=== PATIENT | female | born 1995 | race Caucasian/White ===

== ENCOUNTER 2016-10-19 21:19 | Emergency (ER) | payer OTHER ==
[2016-10-19 21:43] VITALS: BP 117/68
--- NOTE | 2016-10-19 22:52 | UC ---
General HPI - HPI Summary HPI Summary: complaint of left nipple pain following getting pierced today feels swollen and purple and entire breast hurts a clamp was used on the left breast before peircing her nipple and wasn't wearing a mask denies fever taking tylenol and advil with some relief - History of Current Complaint Hx Obtained From: Patient <Freda Colon - Last Filed: 10/19/16 23:09> <Fany Cottrell - Last Filed: 10/19/16 23:35> - History of Current Complaint Chief Complaint: UCSkin Stated Complaint: SKIN C/O Time Seen by Provider: 10/19/16 22:45 - Allergy/Home Medications Allergies/Adverse Reactions: Allergies Allergy/AdvReac Type Severity Reaction Status Date / Time Eggs or Egg-derived Products Allergy Anaphylatic Verified 10/19/16 21:45 Shock Milk-related Compounds Allergy Anaphylatic Verified 10/19/16 21:45 Shock Peanut-containing Drug Allergy Altered Verified 10/19/16 21:45 Products Mental Status Sesame Oil Allergy Anaphylatic Verified 10/19/16 21:45 Shock Soy Allergy Allergy Anaphylatic Verified 10/19/16 21:45 Shock Tree Nuts Allergy Anaphylatic Verified 10/19/16 21:45 Shock Home Medications: Home Medications Beclomethasone 40 MCG MDI(NF) [Qvar 40 MCG MDI(NF)] 10/19/16 [History] PMH/Surg Hx/FS Hx/Imm Hx Previously Healthy: Yes Respiratory History Of: Reports: Asthma - Surgical History Surgical History: Yes Surgery Procedure, Year, and Place: periodontal - Family History Known Family History: Positive: Hypertension - father Negative: Cardiac Disease, Diabetes - Social History Occupation: Student Alcohol Use: Occasionally Substance Use Type: None Smoking Status (MU): Never Smoked Tobacco <Freda Colon - Last Filed: 10/19/16 23:09> Review of Systems Constitutional: Negative Skin: Other - piercing Eyes: Negative ENT: Negative Respiratory: Negative Cardiovascular: Negative Gastrointestinal: Negative Genitourinary: Negative Motor: Negative Neurovascular: Negative Musculoskeletal: Negative Neurological: Negative Psychological: Negative All Other Systems Reviewed And Are Negative: Yes <Freda Colon - Last Filed: 10/19/16 23:09> Physical Exam Triage Information Reviewed: Yes Appearance: No Pain Distress, Well-Nourished Vital Signs: Initial Vital Signs Temp 99.4 F 04/01/17 21:40 Pulse 55 10/19/16 21:40 Resp 18 10/19/16 21:40 BP 117/68 10/19/16 21:40 Pulse Ox 97 10/19/16 21:40 Vital Signs Reviewed: Yes Eyes: Positive: Conjunctiva Clear ENT: Positive: Pharynx normal, TMs normal Respiratory: Positive: Lungs clear, Normal breath sounds, No respiratory distress Cardiovascular: Positive: RRR, No Murmur, Pulses Normal Neurological: Positive: Alert Psychological Exam: Normal Skin: Positive: Other - left breast - ecchymosis and tenderness around nipple - area [id number] cm warm to touch no axilla tenderness <Freda Colon - Last Filed: 10/19/16 23:09> Vital Signs: Initial Vital Signs Temp 99.4 F 10/19/16 21:40 Pulse 55 10/19/16 21:40 Resp 18 10/19/16 21:40 BP 117/68 10/19/16 21:40 Pulse Ox 97 10/19/16 21:40 <Fany Cottrell - Last Filed: 10/19/16 23:35> Course/Dx - Differential Dx - Multi-Symptom Differential Diagnoses: Other - cellulitis Provider Diagnoses: left breast hematoma, left breast cellulitis <Freda Colon - Last Filed: 10/19/16 23:09> Discharge <Freda Colon - Last Filed: 10/19/16 23:09> <Fany Cottrell - Last Filed: 10/19/16 23:35> - Discharge Plan Condition: Stable Disposition: HOME Prescriptions: Sulfamethox/Trimethoprim DS* [Bactrim DS 800/160 TAB*] 1 tab PO BID #14 tab Patient Education Materials: Hematoma (ED), Cellulitis (ED) [facility] - Additional Instructions: Please take antibiotic as directed Increase fluids and rest Take acetaminophen or ibuprofen for fever or pain Please review your discharge instructions. If your symptoms do not improve please call your primary care provider or return to urgent care.
[2016-10-19] MEDS ORDERED: Sulfamethox/Trimethoprim DS 800/160* TAB PO ONE ×2 (23:02→23:08)
== END 2016-10-19 23:22 | disposition home or self-care (01) ==
LOC: UCEAST 21:19
DX: S20.02XA Contusion of left breast, initial encounter (principal); X58.XXXA Exposure to other specified factors, initial encounter; Y93.9 Activity, unspecified; Y92.9 Unspecified place or not applicable; N61.0 Mastitis without abscess; J45.909 Unspecified asthma, uncomplicated
CPT/HCPCS: 99212; A9270-GY; G0463

== ENCOUNTER 2017-11-01 06:41 | Emergency (ER) | payer OTHER ==
[2017-11-01] MEDS ORDERED: NS 0.9% 1000 ML* 2,000 ML IV ONE (07:46)
[2017-11-01] MEDS ORDERED: Ondansetron INJ* 2 MG/ML VIAL IV ONE (07:46)
[2017-11-01] MEDS ORDERED: Ketorolac INJ* 30 MG/ML 1 ML VIAL IV ONE (07:46)
[2017-11-01] MEDS ORDERED: Ketorolac INJ* 30 MG/ML 1 ML VIAL ONE (07:48)
[2017-11-01] MEDS ORDERED: Ondansetron INJ* 2 MG/ML VIAL ONE (07:48)
[2017-11-01] MEDS ORDERED: Pantoprazole IV* 40 MG IV ONE (07:48)
[2017-11-01 08:08] LABS: ABS Basophils 0.1 10^3/ul (0-0.2); ABS Eosinophils 0.2 10^3/ul (0-0.6); ABS Lymphocytes 1.4 10^3/ul (1.0-4.8); ABS Monocytes 0.5 10^3/ul (0-0.8); ABS Neutrophils 7.2 10^3/ul (1.5-7.7); ABS Nucleated RBC 0 10^3/ul; Eosinophil % 1.8 % (0-6); Hematocrit 44 % (35-47); Hemoglobin 15.6 g/dl (12.0-16.0); Lymphocyte % 15.2 % (25-47); Mean Corpuscular HGB Conc 35 g/dl (31-36); Mean Corpuscular Hemoglobin 31 pg (27-31); Mean Corpuscular Volume 89 fL (80-97); Mean Platelet Volume 9.7 um3 (7.4-10.4); Nucleated Red Blood Cells % 0; Platelet Count 219 10^3/ul (150-450); Red Blood Count 4.98 10^6/ul (4.0-5.4); Red Cell Distribution Width 13 % (10.5-15); White Blood Count 9.3 10^3/ul (3.5-10.8)
[2017-11-01 08:23] LABS: EGFR Non-African American 73.6 (>60)
[2017-11-01 08:28] LABS: Urine Appearance Clear; Urine Blood Negative (Negative); Urine Color Straw; Urine Ketones Negative (Negative); Urine Protein Negative (Negative); Urine Specific Gravity 1.006 (1.010-1.030); Urine Urobilinogen Negative (Negative)
[2017-11-01 08:33] LABS: INR 0.91 (0.77-1.02)
[2017-11-01] MEDS ORDERED: Iohexol 300* (CONTRAST) 10 ML SDV IV ONE (08:58)
--- NOTE | 2017-11-01 09:54 | RAD ---
CLINICAL HISTORY: 3 days of abdominal pain, constipation, nausea and vomiting COMPARISON: None TECHNIQUE: Contrast enhanced CT examination of the abdomen and pelvis from the lung bases through the initial tuberosities. The patient received 70 mL Omnipaque 300 intravenously prior to imaging.The patient received oral contrast as well prior to imaging. FINDINGS: VISUALIZED LUNG BASES: The visualized lung bases are grossly clear. There is no pleural effusion. ABDOMEN AND PELVIS: The liver, spleen, pancreas and adrenal glands are grossly normal in appearance. The gallbladder is normal. The kidneys are normal in appearance without focal mass, calcification or signs of hydronephrosis. The oral contrast has progressed as far as the transverse colon. The small and large bowel are not distended. The appendix is best visualized in the sagittal plane (image 52 and 54) measuring 5 mm in diameter with contrast in the lumen and at least one foci of gas in the distal portion. There are air-fluid levels throughout much of the small bowel and colon. There is no definite wall thickening. There is no gross retroperitoneal or mesenteric lymphadenopathy. The pelvic viscera is normal in appearance. The abdominal aorta and iliac arteries are normal in course and diameter. There are no sinister bone lesions. IMPRESSION: 1. Air-fluid levels throughout much of the not pathologically dilated small and large bowel could be seen in the setting of diarrheal illness. 2. Normal appendix.
[2017-11-01] MEDS ORDERED: Al Hydrox/Mg Hydrox/Simet LIQ* 30 ML UDC PO ONE (11:09)
[2017-11-01] MEDS ORDERED: Lidocaine 2% VISCOUS* 15 ML UDC PO ONE (11:09)
[2017-11-01 12:49] VITALS: BP 126/76
--- NOTE | 2017-11-01 18:03 | ED ---
Zehra Patel Jason, scribed for Kenny Raygoza MD on 11/01/17 at 0751 . Abdominal Pain/Female - HPI Summary HPI Summary: This patient is a 22 year old F [facility] accompanied by female fitness professional with a chief complaint of intermittent abdominal pain since 3 days ago. She states I went to urgent care yesterday because I thought she had kidney stones. I took magnesium citrate since 1 pm yesterday and have been shitting water since then. My pain radiates onto both sides of my back. The patient is rates the pain 8/10 in severity. Symptoms aggravated by nothing. Symptoms alleviated by nothing. Patient reports Bilateral back pain. Patient denies abnormal vaginal discharge, difficulty with bowel movements, and prior episodes. Last normal menstrual period was 2 weeks ago. - History of Current Complaint Chief Complaint: EDAbdPain Stated Complaint: PAIN Time Seen by Provider: 11/01/17 07:35 Hx Obtained From: Patient Hx Last Menstrual Period: one week ago Timing: Intermittent Episode Lasting Pain Intensity: 8 Pain Scale Used: 0-10 Numeric Location: Discrete At: RUQ, Discrete At: LUQ Radiates: Yes Radiates to: Back Aggravating Factor(s): Nothing Alleviating Factor(s): Nothing Allergies/Adverse Reactions: Allergies Allergy/AdvReac Type Severity Reaction Status Date / Time Egg Derived Allergy Anaphylatic Verified 11/01/17 07:16 Shock milk Allergy Anaphylatic Verified 11/01/17 07:16 Shock peanut Allergy Anaphylatic Verified 11/01/17 07:16 Shock sesame oil Allergy Anaphylatic Verified 11/01/17 07:16 Shock soy Allergy Anaphylatic Verified 11/01/17 07:16 Shock Tree Nuts Allergy Anaphylatic Verified 11/01/17 06:49 Shock Home Medications: Home Medications Beclomethasone 80 MCG MDI(NF) [Qvar 80 MCG MDI(NF)] 2 puff INH BID 11/01/17 [ History Confirmed 11/01/17] Bupropion XL* [Wellbutrin XL *] 150 mg PO DAILY 11/01/17 [History Confirmed ] PMH/Surg Hx/FS Hx/Imm Hx Previously Healthy: No Respiratory History: Reports: Hx Asthma Opthamlomology History: Denies: Hx Legally Blind EENT History: Denies: Hx Deafness - Surgical History Surgery Procedure, Year, and Place: periodontal Infectious Disease History: No Infectious Disease History: Denies: History Other Infectious Disease, Traveled Outside the [place] in Last 30 Days - Family History Known Family History: Positive: Hypertension - father Negative: Cardiac Disease, Diabetes - Social History Alcohol Use: Occasionally Substance Use Type: Reports: None Smoking Status (MU): Never Smoked Tobacco Review of Systems Gastrointestinal: Negative - difficulty with bowel movements Positive: Abdominal Pain Genitourinary: Negative - vaginal discharge Positive: no symptoms reported Positive: Other - Bilateral back pain All Other Systems Reviewed And Are Negative: Yes Physical Exam - Summary Physical Exam Summary: General: well-appearing, Mild pain distress Skin: warm, color reflects adequate perfusion, dry Head: normal Eyes: EOMI, DIANA ENT: Oral mucosa dry Neck: supple, nontender Respiratory: CTA, breath sounds present Cardiovascular: RRR Abdomen: soft, Tender in upper abdomen RUQ epigastrium and left upper quadrant. Bowel: Hypoactive bowel sounds Musculoskeletal: normal, strength/ROM intact Neurological: normal, sensory/motor intact, A&O x3 Psychological: affect/mood appropriate Triage Information Reviewed: Yes Vital Signs On Initial Exam: Initial Vitals Temp Pulse Resp BP Pulse Ox 98.5 F 70 16 113/92 100 11/01/17 06:44 11/01/17 06:44 11/01/17 06:44 11/01/17 06:44 11/01/17 06:44 Vital Signs Reviewed: Yes Diagnostics - Vital Signs Vital Signs Temp Pulse Resp BP Pulse Ox 11/01/17 06:44 98.5 F 70 16 113/92 100 - Laboratory Lab Results: Lab Results 11/01/17 11/01/17 11/01/17 Range/Units 07:56 07:56 07:56 WBC 9.3 (3.5-10.8) 10^3/ul RBC 4.98 (4.0-5.4) 10^6/ul Hgb 15.6 (12.0-16.0) g/dl Hct 44 (35-47) % MCV 89 (80-97) fL MCH 31 (27-31) pg MCHC 35 (31-36) g/dl RDW 13 (10.5-15) % Plt Count 219 (150-450) 10^3/ul MPV 9.7 (7.4-10.4) um3 Neut % (Auto) 77.3 (38-83) % Lymph % (Auto) 15.2 L (25-47) % Pickett % (Auto) 4.8 (0-7) % Eos % (Auto) 1.8 (0-6) % Baso % (Auto) 0.9 (0-2) % Absolute Neuts (auto) 7.2 (1.5-7.7) 10^3/ul Absolute Lymphs (auto) 1.4 (1.0-4.8) 10^3/ul Absolute Monos (auto) 0.5 (0-0.8) 10^3/ul Absolute Eos (auto) 0.2 (0-0.6) 10^3/ul Absolute Basos (auto) 0.1 (0-0.2) 10^3/ul Absolute Nucleated RBC 0 10^3/ul Nucleated RBC % 0 INR (Anticoag Therapy) 0.91 (0.77-1.02) APTT 28.9 (26.0-36.3) seconds Sodium 137 L (139-145) mmol/L Potassium 4.3 (3.5-5.0) mmol/L Chloride 103 (101-111) mmol/L Carbon Dioxide 26 (22-32) mmol/L Anion Gap 8 (2-11) mmol/L BUN 9 (6-24) mg/dL Creatinine 0.95 (0.51-0.95) mg/dL Est GFR ( Amer) 94.6 (>60) Est GFR (Non-Af Amer) 73.6 (>60) BUN/Creatinine Ratio 9.5 (8-20) Glucose 97 (70-100) mg/dL Lactic Acid (0.5-2.0) mmol/L Calcium 10.1 (8.6-10.3) mg/dL Total Bilirubin 0.60 (0.2-1.0) mg/dL AST 18 (13-39) U/L ALT 16 (7-52) U/L Alkaline Phosphatase 81 (34-104) U/L C-Reactive Protein < 1.00 (< 5.00) mg/L Total Protein 7.9 (6.4-8.9) g/dL Albumin 4.9 (3.2-5.2) g/dL Globulin 3.0 (2-4) g/dL Albumin/Globulin Ratio 1.6 (1-3) Lipase 23 (11.0-82.0) U/L Beta HCG, Quant < 0.60 mIU/mL Urine Color Urine Appearance Urine pH (5-9) Ur Specific [place] (1.010-1.030) Urine Protein (Negative) Urine Ketones (Negative) Urine Blood (Negative) Urine Nitrate (Negative) Urine Bilirubin (Negative) Urine Urobilinogen (Negative) Ur Leukocyte Esterase (Negative) Urine WBC (Auto) (Absent) Urine RBC (Auto) (Absent) Ur Squamous Epith Cells (Absent) Urine Bacteria (Absent) Urine Glucose (Negative) 11/01/17 11/01/17 Range/Units 07:56 08:07 WBC (3.5-10.8) 10^3/ul RBC (4.0-5.4) 10^6/ul Hgb (12.0-16.0) g/dl Hct (35-47) % MCV (80-97) fL MCH (27-31) pg MCHC (31-36) g/dl RDW (10.5-15) % Plt Count (150-450) 10^3/ul MPV (7.4-10.4) um3 Neut % (Auto) (38-83) % Lymph % (Auto) (25-47) % Pickett % (Auto) (0-7) % Eos % (Auto) (0-6) % Baso % (Auto) (0-2) % Absolute Neuts (auto) (1.5-7.7) 10^3/ul Absolute Lymphs (auto) (1.0-4.8) 10^3/ul Absolute Monos (auto) (0-0.8) 10^3/ul Absolute Eos (auto) (0-0.6) 10^3/ul Absolute Basos (auto) (0-0.2) 10^3/ul Absolute Nucleated RBC 10^3/ul Nucleated RBC % INR (Anticoag Therapy) (0.77-1.02) APTT (26.0-36.3) seconds Sodium (139-145) mmol/L Potassium (3.5-5.0) mmol/L Chloride (101-111) mmol/L Carbon Dioxide (22-32) mmol/L Anion Gap (2-11) mmol/L BUN (6-24) mg/dL Creatinine (0.51-0.95) mg/dL Est GFR ( Amer) (>60) Est GFR (Non-Af Amer) (>60) BUN/Creatinine Ratio (8-20) Glucose (70-100) mg/dL Lactic Acid 1.8 (0.5-2.0) mmol/L Calcium (8.6-10.3) mg/dL Total Bilirubin (0.2-1.0) mg/dL AST (13-39) U/L ALT (7-52) U/L Alkaline Phosphatase (34-104) U/L C-Reactive Protein (< 5.00) mg/L Total Protein (6.4-8.9) g/dL Albumin (3.2-5.2) g/dL Globulin (2-4) g/dL Albumin/Globulin Ratio (1-3) Lipase (11.0-82.0) U/L Beta HCG, Quant mIU/mL Urine Color Straw Urine Appearance Clear Urine pH 7.0 (5-9) Ur Specific [place] 1.006 L (1.010-1.030) Urine Protein Negative (Negative) Urine Ketones Negative (Negative) Urine Blood Negative (Negative) Urine Nitrate Negative (Negative) Urine Bilirubin Negative (Negative) Urine Urobilinogen Negative (Negative) Ur Leukocyte Esterase 1+ A (Negative) Urine WBC (Auto) Trace(0-5/hpf) (Absent) Urine RBC (Auto) Absent (Absent) Ur Squamous Epith Cells Present A (Absent) Urine Bacteria Absent (Absent) Urine Glucose Negative (Negative) Result Diagrams: 11/01/17 07:56 11/01/17 07:56 Lab Statement: Any lab studies that have been ordered have been reviewed, and results considered in the medical decision making process. - CT Abdomen/pelvis CT CT Interpretation Completed By: Radiologist - Abdomen/pelvis CT reveals, per radiologist, 1. Air-fluid levels throughout much of the not pathologically dilated small and large bowel could be seen in the setting of diarrheal illness. 2. Normal appendix. ED physician has reviewed this radiology report Re-Evaluation - Re-Evaluation First Eval Re-Evaluation Time: 11:05 Change: Improved Comment: Initial round of pain medicine decreased the pain .Pt reported a liquid -like stool that was black with no blood. Pt declines rectal exam. Abdominal Pain Fem Course/Dx - Course Course Of Treatment: Medications reviewed. Allergies noted. BP noted and advised to follow up with PCP. PAIN IMPROVED IN ED WITH GI COCKTAIL. DISCUSSED RESULTS WITH THE PATIENT. F/U PMD; RETURN IF WORSE. - Diagnoses Provider Diagnoses: Abdominal pain Discharge - Sign-Out/Discharge Documenting (check all that apply): Discharge - Discharge Plan Condition: Stable Disposition: HOME Prescriptions: Omeprazole CAP* [Prilosec CAP* 20 MG] 20 mg PO BID #30 cap. Ondansetron ODT TAB* [Zofran 4 MG Odt TAB*] 4 mg PO Q6H PRN #10 tab.odt PRN Reason: Nausea Sucralfate TAB* [Carafate*] 1 gm PO QID #90 tab Patient Education Materials: Gastroesophageal Reflux Disease (ED), Acute Abdominal Pain (ED) [facility] [[facility] - Additional Instructions: FOLLOW UP WITH YOUR DOCTOR. RETURN TO THE EMERGENCY DEPARTMENT FOR ANY WORSENING OF YOUR CONDITION; PAIN, FEVER, YOU FEEL LIKE PASSING OUT BLOOD IN YOUR EMESIS OR STOOL OR QUESTIONS OR CONCERNS. - Billing Disposition and Condition Condition: STABLE Disposition: HOME The documentation as recorded by the Zehra douglass Jason accurately reflects the service I personally performed and the decisions made by me, Kenny Raygoza MD.
== END 2017-11-01 12:54 | disposition home or self-care (01) ==
LOC: ED 06:41
DX: R10.9 Unspecified abdominal pain (principal); M54.9 Dorsalgia, unspecified
CPT/HCPCS: 36415; 74177; 80053; 81003; 81015; 83605; 83690; 84702; 85025; 85610; 85730; 86140; 87086; 96360; 96374; 96375; 99283; A9270-GY; J1885; J2405; Q9967

== ENCOUNTER 2019-02-01 00:21 | Emergency (ER) | payer OTHER ==
[2019-02-01] MEDS ORDERED: Lorazepam PYXIS KEY PRN (00:47)
[2019-02-01] MEDS ORDERED: LORazepam INJ* 2 MG/ML 1 ML VIAL IV PUSH ONE (00:47)
[2019-02-01] MEDS ORDERED: NS 0.9% 1000 ML** 1,000 ML IV ONE (00:48)
[2019-02-01] MEDS ORDERED: methylPREDNISolone 125 MG* 2 ML VIAL IV ONE (00:48)
[2019-02-01] MEDS ORDERED: Ondansetron INJ* 2 MG/ML VIAL IV ONE (00:49)
--- NOTE | 2019-02-01 00:49 | ED ---
Allergic Reaction/Systemic - HPI Summary HPI Summary: This patient is a 23 year old F presenting to ED with a chief complaint of allergic reaction since 2314. She does not know what triggered the rxn. Patient reports difficulty breathing and swallowing. Patient was at home. She used her Epi-pen at 2314. She gets allergic reactions about once a month. She reports using her Epi-pen about twice a year. The patient rates the pain 0/10 in severity. Symptoms aggravated by nothing. Symptoms alleviated by nothing. Patient denies pruritus, rash. - History of Current Complaint Chief Complaint: EDAllergicReaction Time Seen by Provider: 02/01/19 00:36 Hx Obtained From: Patient Hx Last Menstrual Period: one week ago Onset/Duration: Sudden Onset, Started hours ago - 2314 today, Still Present Severity Initially: Mild Severity Currently: None Pain Intensity: 0 Pain Scale Used: 0-10 Numeric Aggravating Factor(s): Nothing Alleviating Factor(s): Nothing Associated Signs And Symptoms: Positive: Negative - Pruritus, rash, Difficulty Breathing, Other: - Difficulty swallowing - Allergies/Home Medications Allergies/Adverse Reactions: Allergies Allergy/AdvReac Type Severity Reaction Status Date / Time Egg Derived Allergy Anaphylatic Verified 02/01/19 00:24 Shock milk Allergy Anaphylatic Verified 02/01/19 00:24 Shock peanut Allergy Anaphylatic Verified 02/01/19 00:24 Shock sesame oil Allergy Anaphylatic Verified 02/01/19 00:24 Shock soy Allergy Anaphylatic Verified 02/01/19 00:24 Shock Tree Nuts Allergy Anaphylatic Verified 02/01/19 00:24 Shock PMH/Surg Hx/FS Hx/Imm Hx Endocrine/Hematology History: Denies: Hx Diabetes Cardiovascular History: Denies: Hx Hypertension Respiratory History: Reports: Hx Asthma History: Denies: Hx Renal Disease Sensory History: Denies: Hx Legally Blind, Hx Deafness Opthamlomology History: Denies: Hx Legally Blind - Surgical History Surgery Procedure, Year, and Place: periodontal Infectious Disease History: No Infectious Disease History: Reports: Traveled Outside the [place] in Last 30 Days Denies: History Other Infectious Disease - Family History Known Family History: Positive: Hypertension - father Negative: Cardiac Disease, Diabetes - Social History Alcohol Use: Occasionally Hx Substance Use: No Substance Use Type: Reports: None Hx Tobacco Use: No Smoking Status (MU): Never Smoked Tobacco Review of Systems Respiratory: Other - Difficulty breathing Gastrointestinal: Other - Difficulty swallowing Skin: Negative - Pruritus Negative: Rash All Other Systems Reviewed And Are Negative: Yes Physical Exam - Summary Physical Exam Summary: VITAL SIGNS: Reviewed. GENERAL: Patient is a well-developed and nourished female who is lying comfortable in the stretcher. Patient is not in any acute respiratory distress. She seems anxious. HEAD AND FACE: No signs of trauma. No ecchymosis, hematomas or skull depressions. No sinus tenderness. EYES: PERRLA, EOMI x 2, No injected conjunctiva, no nystagmus. EARS: Hearing grossly intact. Ear canals and tympanic membranes are within normal limits. MOUTH: Oropharynx within normal limits. NECK: Supple, trachea is midline, no adenopathy, no JVD, no carotid bruit, no c- spine tenderness, neck with full ROM CHEST: Symmetric, no tenderness at palpation LUNGS: Clear to auscultation bilaterally. No wheezing or crackles. CVS: Regular rate and rhythm, S1 and S2 present, no murmurs or gallops appreciated. ABDOMEN: Soft, non-tender. No signs of distention. No rebound no guarding, and no masses palpated. Bowel sounds are normal. EXTREMITIES: FROM in all major joints, no edema, no cyanosis or clubbing. NEURO: Alert and oriented x 3. No acute neurological deficits. Speech is normal and follows commands. SKIN: Dry and warm Triage Information Reviewed: Yes Vital Signs On Initial Exam: Initial Vitals Temp Pulse Resp BP Pulse Ox 98.5 F 62 16 114/93 100 02/01/19 00:22 02/01/19 00:22 02/01/19 00:22 02/01/19 00:22 02/01/19 00:22 Vital Signs Reviewed: Yes Diagnostics - Vital Signs Vital Signs Temp Pulse Resp BP Pulse Ox 02/01/19 00:22 98.5 F 62 16 114/93 100 - Laboratory Lab Statement: Any lab studies that have been ordered have been reviewed, and results considered in the medical decision making process. - EKG 0038 Cardiac Rate: NL - 73 BPM EKG Rhythm: Sinus Rhythm ST Segment: Normal Ectopy: None Summary of EKG Findings: NSR at 73 BPM. Re-Evaluation - Re-Evaluation First Eval Re-Evaluation Time: 01:38 Change: Worse Comment: Patient has developed a rash and difficulty breathing, therefore I will give Duoneb and Benadryl. Allergic Reaction Course/Dx - Course Course Of Treatment: This patient is a 23 year old F presenting to ED with a chief complaint of allergic reaction since 2314. In the ED course, patient received Ativan, Solu-Medrol, fluids, Zofran, Benadryl, and Duoneb. EKG at 0038 revealed NSR at 73 BPM, otherwise normal. Patient will be discharged home with dx of allergic. Patient understands and agrees with this plan. - Diagnoses Provider Diagnoses: Allergic reaction Discharge - Sign-Out/Discharge Documenting (check all that apply): Patient Departure - Discharge Patient Received Moderate/Deep Sedation with Procedure: No - Discharge Plan Condition: Stable Disposition: HOME Prescriptions: EPINEPHrine [Epipen 2-Speedy] 0.3 mg IM SEE INSTRUCTIONS #1 inj hydrOXYzine HCL TAB* [Atarax 25 MG TAB*] 25 mg PO TID PRN #20 tab PRN Reason: Itching predniSONE TAB* [Deltasone TAB*] 50 mg PO DAILY #5 tab Patient Education Materials: Allergies (ED) Referrals: [facility] [[address], APPLICATION, OTHER] - 2 Days Additional Instructions: Follow-up with your primary care provider in 2-3 days. RETURN TO THE ER FOR WORSENING OR CHANGING SYMPTOMS. - Attestation Statements Document Initiated by Scribe: Yes Documenting Scribe: Freddy Jj Provider For Whom Lyubovibe is Documenting (Include Credential): Rashawn Go MD Scribe Attestation: I, Freddy Jj, scribed for Rashawn Go MD on 02/01/19 at 0333. Status of Scribe Document: Ready
[2019-02-01] MEDS ORDERED: Lorazepam PYXIS KEY ONE (00:58)
[2019-02-01] MEDS ORDERED: diPHENhydraMINE IV* 50 MG/ML 1 ml VIAL (BENADRYL) ONE (01:36)
[2019-02-01] MEDS ORDERED: Albuterol/Ipratropium NEB.SOL* Albuterol 2.5 MG/Ipratropium 0.5 MG 3 ML ONE (01:42)
[2019-02-01] MEDS ORDERED: Famotidine IV* 10 MG/ML 2 ML (20 mg) ONE (01:53)
[2019-02-01] MEDS ORDERED: diPHENhydraMINE IV* 50 MG/ML 1 ml VIAL (BENADRYL) SLOW PUSH ONE (01:53)
[2019-02-01] MEDS ORDERED: Famotidine IV* 10 MG/ML 2 ML (20 mg) IV SLOW PU ONE ×2 (01:54→01:55)
[2019-02-01] MEDS ORDERED: Albuterol/Ipratropium NEB.SOL* Albuterol 2.5 MG/Ipratropium 0.5 MG 3 ML INH ONE (01:55)
[2019-02-01 04:03] VITALS: BP 115/57
== END 2019-02-01 04:01 | disposition home or self-care (01) ==
LOC: ED 00:21
DX: T78.40XA Allergy, unspecified, initial encounter (principal); X58.XXXA Exposure to other specified factors, initial encounter; Y92.9 Unspecified place or not applicable; J45.909 Unspecified asthma, uncomplicated
CPT/HCPCS: 93005; 96374; 96375; 96376; 99284; A9270-GY; J1200; J2060; J2405; J2930